=== PATIENT | female | born 1990 | race American Indian/Alaskan Native ===

== ENCOUNTER 2017-08-24 11:55 | Emergency (ER) | payer SELFPAY ==
[2017-08-24 13:05] LABS: Basophils % (Auto) 0.5 % (0.0-1.8); Eosinophils % (Auto) 1.3 % (0.0-4.3); Hematocrit 29.8 % (30.3-42.9); Mean Corpuscular HGB Conc 30 % (30-34); Platelet Count 329 K/mm3 (140-440); Red Blood Count 4.59 M/mm3 (3.65-5.03); Red Cell Distribution Width 18.6 % (13.2-15.2); White Blood Count 9.5 K/mm3 (4.5-11.0)
[2017-08-24 13:06] LABS: Mean Corpuscular Hemoglobin 20 pg (28-32); Mean Corpuscular Volume 65 fl (79-97)
--- NOTE | 2017-08-24 13:22 | XRay Report ---
ROUTINE CHEST, TWO VIEWS: HISTORY: Short of breath. The trachea, heart, mediastinal contour, lung guevara and bony thorax are unremarkable. IMPRESSION: Unremarkable chest x-ray.
[2017-08-24 13:30] LABS: Anion Gap 18 mmol/L; BUN/Creatinine Ratio 16; Blood Urea Nitrogen 11 mg/dL (7-17); Calcium 8.9 mg/dL (8.4-10.2); Carbon Dioxide 22 mmol/L (22-30); Chloride 105.2 mmol/L (98-107); Glucose 89 mg/dL (65-100); Sodium 141 mmol/L (137-145)
--- NOTE | 2017-08-24 16:11 | Emergency Department Report ---
ED Chest Pain HPI - General Chief Complaint: Chest Pain Stated Complaint: CHEST PAIN Time Seen by Provider: 08/24/17 15:54 Source: patient Mode of arrival: Ambulatory Limitations: No Limitations - History of Present Illness Initial Comments: 27-year-old female past medical history PCOS, control use, smoker, obesity , migraines, family history of DVT including mother who had saddle pulmonary embolus presents with 3 days of pleuritic chest pain worsening with shortness of breath at rest. Patient is awake alert and oriented 3 appears slightly uncomfortable resting in bed. No recent surgeries, no recent travel, denies recent trauma. No personal history of PE or DVT but states that several family members had PE or DVT. Chest pain is substernal and intermittent. MD Complaint: chest pain Onset/Timin -: days(s) Onset: during rest Pain Location: substernal Severity: moderate Consistency: constant Treatments Prior to Arrival: none - Related Data On Oral Contraceptives: No Previous Rx's Medication Instructions Recorded Last Taken Type Naproxen [Naprosyn TAB] 500 mg PO BID PRN #25 tablet 08/24/17 Unknown Rx Allergies Allergy/AdvReac Type Severity Reaction Status Date / Time No Known Allergies Allergy Unverified 08/24/17 12:25 Heart Score - HEART Score History: Slightly suspicious EKG: Normal Age: < 45 Risk factors: 1-2 risk factors Troponin: < normal limit HEART Score: 1 ED Review of Systems ROS: Stated complaint: CHEST PAIN Other details as noted in HPI Constitutional: denies: chills, fever Eyes: denies: eye pain, eye discharge, vision change ENT: denies: ear pain, throat pain Respiratory: denies: cough, shortness of breath, wheezing Cardiovascular: chest pain. denies: palpitations Endocrine: no symptoms reported Gastrointestinal: denies: abdominal pain, nausea, diarrhea Genitourinary: denies: urgency, dysuria, discharge Musculoskeletal: denies: back pain, joint swelling, arthralgia Skin: denies: rash, lesions Neurological: denies: headache, weakness, paresthesias Psychiatric: denies: anxiety, depression Hematological/Lymphatic: denies: easy bleeding, easy bruising ED Past Medical Hx - Past Medical History Previous Medical History?: Yes Additional medical history: PCOS, Nosebleed, Low blood sugars - Surgical History Past Surgical History?: Yes Additional Surgical History: Tubes in ear, Tonsilectomy, Sacral cyst removed - Social History Smoking Status: Current Every Day Smoker Substance Use Type: None - Medications Home Medications: Home Medications Medication Instructions Recorded Confirmed Last Taken Type Naproxen [Naprosyn TAB] 500 mg PO BID PRN #25 tablet 08/24/17 Unknown Rx ED Physical Exam - General Limitations: No Limitations General appearance: alert, in no apparent distress - Head Head exam: Present: atraumatic, normocephalic - Eye Eye exam: Present: normal appearance, PERRL, EOMI - ENT ENT exam: Present: mucous membranes moist - Neck Neck exam: Present: normal inspection - Respiratory Respiratory exam: Present: normal lung sounds bilaterally. Absent: respiratory distress - Cardiovascular Cardiovascular Exam: Present: regular rate, normal rhythm. Absent: systolic murmur, diastolic murmur, rubs, gallop - GI/Abdominal GI/Abdominal exam: Present: soft, normal bowel sounds - Extremities Exam Extremities exam: Present: normal inspection - Back Exam Back exam: Present: normal inspection - Neurological Exam Neurological exam: Present: alert, oriented X3 - Psychiatric Psychiatric exam: Present: normal affect, normal mood - Skin Skin exam: Present: warm, dry, intact, normal color. Absent: rash ED Course Vital Signs 08/24/17 12:26 Temperature 98.9 F Pulse Rate 91 H Respiratory 18 Rate Blood Pressure 120/83 O2 Sat by Pulse 100 Oximetry ESME score - Esme Score Age > 65: (0) No Aspirin use within the Past 7 Days: (0) No 3 or more CAD Risk Factors: (0) No 2 or more Angina events in past 24 hrs: (0) No Known CAD with more than 50% Stenosis: (0) No Elevated Cardiac Markers: (0) No ST Deviation Greater than 0.5mm: (0) No ESME Score: 0 ED Medical Decision Making - Lab Data Result diagrams: 08/24/17 12:42 08/24/17 12:42 - Medical Decision Making A/P: Rule out PE, CP 1-Heart Score Low, ESME score 0 2-given patient's active use of control and somewhat pleuritic chest pain as per history I did extensive cardiac workup including troponin EKG chest x- ray and CT angio chest rule out PE as well as lower extremity Doppler as patient did complain of some right-sided calf tenderness for 3 weeks. All tests unremarkable CT angiogram negative for PE 3-naproxen when necessary 4-follow up with primary doctor Critical care attestation.: If time is entered above; I have spent that time in minutes in the direct care of this critically ill patient, excluding procedure time. ED Disposition Clinical Impression: Chest pain Qualifiers: Chest pain type: chest pain on breathing Qualified Code(s): R07.1 - Chest pain on breathing; R07.81 - Pleurodynia Disposition: TO HOME OR SELFCARE Is pt being admited?: No Does the pt Need Aspirin: No Condition: Stable Instructions: Chest Pain (ED) Prescriptions: Naproxen [Naprosyn TAB] 500 mg PO BID PRN #25 tablet PRN Reason: Pain Referrals: [facility] [Outside] - 3-5 Days [facility] [Outside] - 3-5 Days GIANCARLO FARR MD [Staff Physician] - 3-5 Days Forms: Work/School Release Form(ED) Time of Disposition: 18:59
[2017-08-24] MEDS ORDERED: MORPHINE IV ONE (16:58)
[2017-08-24] MEDS ORDERED: NACL 0.9% 500 ML 500 ML IV ONE (16:58)
[2017-08-24] MEDS ORDERED: NACL ONE (17:05)
--- NOTE | 2017-08-24 17:50 | Cat Scan Report ---
FINAL REPORT EXAM: CT ANGIO CHEST HISTORY: ? PE, pleuritic Cp on BCP TECHNIQUE: Serial axial images through the chest during intravenous administration of contrast with coronal, sagittal and oblique MIP reconstructions PRIORS: None. FINDINGS: There is atelectasis in medial aspect of the right lung base. There is mild atelectasis in the lateral aspect of the left lung base. No pleural effusion is seen. The heart measures approximately 13.6 centimeters in length. No abnormal mass or adenopathy is identified. No abnormal filling defects are identified in the pulmonary arteries. No gross abnormality is seen in the visualized portion of the abdomen. No acute osseous abnormality is identified. IMPRESSION: 1. No definite acute pulmonary embolism is identified. 2. Mild atelectasis is noted in the lung bases.
[2017-08-24 19:13] VITALS: BP 123/82
== END 2017-08-24 19:13 | disposition home or self-care (01) ==
LOC: ED 11:55
DX: R07.1 Chest pain on breathing (principal); R07.81 Pleurodynia; F17.200 Nicotine dependence, unspecified, uncomplicated
CPT/HCPCS: 36415; 71020; 71275; 80048; 81025; 82550; 84484; 85025; 85379; 93005; 93010; 93970; 96361; 96374; 99285; J2270; J7040; Q9967

== ENCOUNTER 2017-10-06 07:01 | Emergency (ER) | payer SELFPAY ==
[2017-10-06 07:38] VITALS: BP 124/79
[2017-10-06] MEDS ORDERED: TRIMOX PO ONE (09:48)
[2017-10-06] MEDS ORDERED: TYLENOL PO ONE (09:49)
--- NOTE | 2017-10-06 09:52 | Emergency Department Report ---
HPI - General Chief Complaint: Dental/Oral Time Seen by Provider: 10/06/17 09:07 - [facility] HPI: The patient is a (27)-year-old female who presents to ED complaining of 8/10 pain in the right side of his mouth x 2 weeks . Patient states that the pain started 2 weeks ago and has increased in severity over the last 2-3 days. The pain is exacerbated by eating and opening of the mouth. Patient states the pain is alleviated initially with pain medication but comes back. Patient states that it radiates towards her left ear. Patient describes a as a throbbing, pressure-like sensation. Patient states otherwise well and has no other complaints. Patient has had no fevers and no chills. No chest pain, no shortness of breath. No abdominal pain. No shortness of breath or recent trauma to the face. ED Past Medical Hx - Past Medical History Previous Medical History?: Yes Additional medical history: PCOS, Nosebleed, Low blood sugars, Toothache - Surgical History Past Surgical History?: Yes Additional Surgical History: Tubes in ear, Tonsilectomy, Sacral cyst removed - Social History Smoking Status: Current Every Day Smoker Substance Use Type: Alcohol, Non Opiate Pain, Prescribed - Medications Home Medications: Home Medications Medication Instructions Recorded Confirmed Last Taken Type Naproxen [Naprosyn TAB] 500 mg PO BID PRN #25 tablet 08/24/17 Unknown Rx Cyclobenzaprine [Flexeril] 10 mg PO TID PRN #30 tablet 09/16/17 Unknown Rx Naproxen 500 mg PO BID PRN #30 tablet 09/16/17 Unknown Rx Amoxicillin [Trimox CAP] 500 mg PO TID #21 capsule 10/06/17 Unknown Rx Ibuprofen 800 mg PO Q8H #30 tablet 10/06/17 Unknown Rx ED Review of Systems ROS: Stated complaint: MOUTH PAIN Other details as noted in HPI Constitutional: denies: chills, fever Eyes: denies: eye pain, eye discharge, vision change ENT: dental pain. denies: ear pain, throat pain Respiratory: denies: cough, shortness of breath, wheezing Cardiovascular: denies: chest pain, palpitations Endocrine: no symptoms reported Gastrointestinal: denies: abdominal pain, nausea, vomiting, diarrhea, constipation Genitourinary: denies: urgency, dysuria, discharge Musculoskeletal: denies: back pain, joint swelling, arthralgia Skin: denies: rash, lesions Neurological: denies: headache, weakness, paresthesias Psychiatric: denies: anxiety, depression Hematological/Lymphatic: denies: easy bleeding, easy bruising Physical Exam - Physical Exam Vital Signs: Vital Signs 10/06/17 07:33 Temperature 99.1 F Pulse Rate 106 H Respiratory 18 Rate Blood Pressure 124/79 O2 Sat by Pulse 99 Oximetry Physical Exam: GENERAL: Alert and oriented x3, no apparent distress, Normal Gait, atraumatic. HEAD: Head is normocephalic and a-traumatic. EARS: symetrical, atraumatic, non tender, ear canal clear and moderate cerumen, mildly erythematous Left tympanic membrance , no bulging, no tragus tenderness. gross auditory nml bilaterally. NOSE: Nose symetrical, Nontender,Nares appeared normal. MOUTH:Mouth is well hydrated and without lesions. Tonsils nonerythematous or swollen, Uvula midline, Tongue not elevated. Mucous membranes are moist. Posterior pharynx clear, no exudate or lesions. Patent airways. Tooth #15 tender to palpation, no gingival enlargement, no erythematous swelling, no dental caries. NECK: Supple. Non edematous, No lymphadenopathy or thyromegaly. LUNGS: Symetrical with respiration, No wheezing, no rales or crackles, CTAB. HEART: S1, S2 present, regular rate and rhythm without murmur, no rubs, no gallops. Non tender to palpation SKIN: Warm and dry, No lesions, No ulceration or induration present. ED Course Vital Signs 10/06/17 07:33 Temperature 99.1 F Pulse Rate 106 H Respiratory 18 Rate Blood Pressure 124/79 O2 Sat by Pulse 99 Oximetry ED Medical Decision Making - Medical Decision Making 27-year-old female who presents with left-sided Facial pain secondary to odontogenic caries ED course: Patient received 1000 mg of amoxicillin, 1 tablet of Tylenol 650 Odontogenic infection versus ear infection. Based upon history and physical examination, pain is a result of an infection of tooth number 15 and that the pain Pt feels on the left side of his face and towards the ear is referred pain from this infectious process. Pt has no evidence of acute impending airway compromise. At this point, patient will be discharged home on some antibiotics and pain trial, she will do well with an outpatient course of antibiotics. Follow up with the Dental Clinic as referred Vital signs are normal patient is in no acute distress. Pt had an effect uneventful ED stay Critical care attestation.: If time is entered above; I have spent that time in minutes in the direct care of this critically ill patient, excluding procedure time. ED Disposition Clinical Impression: Tooth infection Disposition: TO HOME OR SELFCARE Is pt being admited?: No Does the pt Need Aspirin: No Condition: Stable Instructions: Dental Caries (ED), Otitis Media (ED), Toothache (ED) Additional Instructions: If worsening symptoms please return to ED. Mr. to take your medication as prescribed. Follow-up with the dental clinic. Prescriptions: Amoxicillin [Trimox CAP] 500 mg PO TID #21 capsule Ibuprofen 800 mg PO Q8H #30 tablet Referrals: PRIMARY CARE, [Primary Care Provider] - 3-5 Days [facility] [Outside] - 3-5 Days [facility] [Outside] - 3-5 Days [facility] [Outside] - 3-5 Days Forms: Work/School Release Form(ED) Time of Disposition: 09:56
== END 2017-10-06 10:24 | disposition home or self-care (01) ==
LOC: ED 07:01
DX: K04.7 Periapical abscess without sinus (principal); F17.200 Nicotine dependence, unspecified, uncomplicated
CPT/HCPCS: 99282

== ENCOUNTER 2017-12-06 17:27 | Emergency (ER) | payer SELFPAY ==
[2017-12-06 19:57] LABS: Basophils # (Auto) 0.1 K/mm3 (0.0-0.1); Basophils % (Auto) 0.6 % (0.0-1.8); Eosinophils # (Auto) 0.2 K/mm3 (0.0-0.4); Eosinophils % (Auto) 1.6 % (0.0-4.3); Lymphocytes # (Auto) 3.1 K/mm3 (1.2-5.4); Lymphocytes % (Auto) 23.6 % (13.4-35.0); Mean Corpuscular HGB Conc 29 % (30-34); Monocytes % (Auto) 7.5 % (0.0-7.3); Platelet Count 304 K/mm3 (140-440); Red Blood Count 5.77 M/mm3 (3.65-5.03)
[2017-12-06 20:03] LABS: Hematocrit 37.7 % (30.3-42.9); Hemoglobin 11.1 gm/dl (10.1-14.3); Mean Corpuscular Hemoglobin 19 pg (28-32); Mean Corpuscular Volume 65 fl (79-97)
[2017-12-06 20:04] LABS: Red Cell Distribution Width 21.9 % (13.2-15.2)
[2017-12-06 20:05] LABS: Alanine Aminotransferase 14 units/L (7-56); Albumin 4.1 g/dL (3.9-5); BUN/Creatinine Ratio 15; Blood Urea Nitrogen 12 mg/dL (7-17); Calcium 9.5 mg/dL (8.4-10.2); Hemolysis Index 3; Lipase 36 units/L (13-60)
[2017-12-06 20:07] LABS: INR 1.06 (0.87-1.13)
[2017-12-06 20:08] LABS: Partial Thromboplastin Time 31.9 Sec. (24.2-36.6)
[2017-12-06 22:13] VITALS: BP 124/91
== END 2017-12-07 08:03 | disposition left against medical advice (07) ==
LOC: ED 17:27
DX: K92.1 Melena (principal); Z53.21 Procedure and treatment not carried out due to patient leaving prior to being seen by health care provider
CPT/HCPCS: 36415; 80053; 83690; 84703; 85025; 85610; 85730; 86850; 86900; 86901

== ENCOUNTER 2018-04-22 21:23 | Emergency (ER) | payer SELFPAY ==
--- NOTE | 2018-04-23 03:00 | Emergency Department Report ---
ED Rash HPI - HPI Chief Complaint: Skin Rash Stated Complaint: RASH ON STOMACH AND ARM Time Seen by Provider: 04/23/18 02:24 Duration: 1 Day Location: Abdomen (upper abdomen up under breast), Other (right buttock) Suspected Cause: Unknown Rash Symptoms: Yes Itching, Yes Blistering, No Facial Swelling, No Tongue/Oral Swelling, No Breathing Difficulties, No Choking Sensation, No Wheezing/Dyspnea, No Peeling, No Fever, No Lightheaded, No Malaise, No Myalgias Severity: moderate Other History: This is a 27-year-old -[place] female who presents with pruritic and painful rash on upper abdomen where breast lay and on the right buttock for one day. [place] 5 possibly due to rash was related to sweating. She has been using cool cough and Neosporin with no improvement of pain patient reports pain is worse with touch and is 7 out of 10 on pain scale. It feels like a burning sensation in each. Patient denies swelling, weeping, and fever. ED Review of Systems ROS: Stated complaint: RASH ON STOMACH AND ARM Other details as noted in HPI Constitutional: denies: chills, fever Respiratory: denies: cough, shortness of breath, wheezing Cardiovascular: denies: chest pain, palpitations Gastrointestinal: denies: abdominal pain, nausea, diarrhea Skin: rash (rash on upper abdomen and left buttocks). denies: lesions Neurological: denies: headache, weakness, numbness, paresthesias Psychiatric: denies: anxiety, depression ED Past Medical Hx - Past Medical History Hx Headaches / Migraines: Yes Additional medical history: PCOS, Nosebleed, Low blood sugars, Toothache - Surgical History Additional Surgical History: Tubes in ear, Tonsilectomy, Sacral cyst removed - Social History Smoking Status: Current Every Day Smoker Substance Use Type: Alcohol - Medications Home Medications: Home Medications Medication Instructions Recorded Confirmed Last Taken Type Naproxen [Naprosyn TAB] 500 mg PO BID PRN #25 tablet 08/24/17 Unknown Rx Cyclobenzaprine [Flexeril] 10 mg PO TID PRN #30 tablet 09/16/17 Unknown Rx Naproxen 500 mg PO BID PRN #30 tablet 09/16/17 Unknown Rx Amoxicillin [Trimox CAP] 500 mg PO TID #21 capsule 10/06/17 Unknown Rx Ibuprofen 800 mg PO Q8H #30 tablet 10/06/17 Unknown Rx Nystatin/Triamcin 30 gm TP BID #1 cream..g. 04/23/18 Unknown Rx [Nystatin-Triamcinolone Cream] Rash Exam - Exam General: Vital signs noted. No distress. Alert and acting appropriately. HEENT: No Periorbital Edema, No Conjuctival Injection, No Chemosis, No Perioral Edema, No Tongue Edema, No Uvular Edema, No Compromised Airway, No Drooling Lungs: Yes Good Air Exchange (Normal Breath Sounds), No Wheezes, No Ronchi, No Stridor, No Cough, No Labored Respirations, No Retractions, No Use of Accessory Muscles, No Other Abnormal Lung Sounds Heart: Yes Regular, No Murmur Skin: Yes Maculopapular Rash (erythematous maculopapular rash on bilateral upper abdomen and right medial buttock), Yes Tenderness, Yes Erythema, No Urticarial Rash, No Morbilliform rash, No Bulla(e), No Excoriations, No Weeping , No Edema, No Encrustations, No Other ED Course Vital Signs 04/22/18 22:07 Temperature 98.9 F Pulse Rate 105 H Respiratory 18 Rate Blood Pressure 134/89 O2 Sat by Pulse 98 Oximetry ED Medical Decision Making - Medical Decision Making This is a 27-year-old female Presents with a pruritic painful rash to upper abdomen and right buttock for one day. Patient examined by me. No distress noted. Vitals stable. Physical assessment susceptible of contact dermatitis. Start nystatin/triamcinolone cream and f/u with PCP in 24-72 hours. Discussed plan with patient mother and agreed to plan. Critical care attestation.: If time is entered above; I have spent that time in minutes in the direct care of this critically ill patient, excluding procedure time. ED Disposition Clinical Impression: Contact dermatitis Qualifiers: Contact dermatitis type: unspecified Contact dermatitis trigger: unspecified trigger Qualified Code(s): L25.9 - Unspecified contact dermatitis, unspecified cause Disposition: TO HOME OR SELFCARE Is pt being admited?: No Does the pt Need Aspirin: No Condition: Stable Instructions: Contact Dermatitis (ED) Additional Instructions: Apply a thin layer of nystatin/triamcinolone cream twice a day for 5-10 days. Wash area daily with soap and water. Keep area clean and dry. Follow up with primary care provider in 24-72 hours. Prescriptions: Nystatin/Triamcin [Nystatin-Triamcinolone Cream] 30 gm TP BID #1 cream..g. Referrals: [facility] [Outside] - 3-5 Days [facility] [Outside] - 3-5 Days [facility] [Outside] - 3-5 Days Forms: Work/School Release Form(ED) Time of Disposition: 03:07 Print Language: DJIBOUTIAN
[2018-04-23 03:13] VITALS: BP 130/88
== END 2018-04-23 03:12 | disposition home or self-care (01) ==
LOC: ED 21:23
DX: L25.9 Unspecified contact dermatitis, unspecified cause (principal); G43.909 Migraine, unspecified, not intractable, without status migrainosus; F17.200 Nicotine dependence, unspecified, uncomplicated
CPT/HCPCS: 99282